=== PATIENT | female | born 1940 | race Caucasian/White ===

== ENCOUNTER 2016-07-15 11:26 | Emergency (ER) | payer MEDICARE ==
[2016-07-15 11:37] VITALS: O2SAT 98
[2016-07-15 12:02] LABS: BASOPHIL % 0.4 % (0.0-0.4); Eosinophil % 2.8 % (0.00-5.0); Granulocytes % 75.7 % (36.0-66.0); Lymphocytes % 11.1 % (24.0-44.0); Mean Cell Volume 102.2 fl (78-100); Mean Corpuscular Hemoglobin 30.7 pg (26-32); Mean Platelet Volume 8.8 fl (6-9.5); Platelet Count 203 K/mm3 (150-450); Red Blood Count 2.73 M/mm3 (4.1-5.4); Red Cell Distribution Width 14.9 % (11.5-14.0); White Blood Count 7.7 K/mm3 (4.0-10.5)
--- NOTE | 2016-07-15 12:05 | ERPHSYRPT ---
- History of Present Illness Time Seen by Provider: 07/15/16 11:28 Source: patient, EMS Patient Subjective Stated Complaint: fall Triage Nursing Assessment: states she was coming back from bathroom and she fell. 'i couldnt lift my right leg' bilat knees swollen. non speicific to pain when asked. c/o mid back pain. per ems report from visiting nurse--pt slid off toilet and landed on her buttocks. witnessed fall per ems report. pt states she fell several weeks ago. no new bruises. pt confused to year and date. oriented to place. Physician History: CC: fall Hx: 76 y/o patient living in apartment alone. EMS was called when she hit her medical alert button. She states trouble moving legs since yesterday. She uses a wheelchair. She went to toilet today. A nurse in the home? told EMS that patient slid from toilet onto buttocks. No head or neck injury. Patient has chronic pain all over. Worse in legs. Complains of some back pain. Timing/Duration: today Severity: mild Allergies/Adverse Reactions: morphine Allergy (Severe, Verified 07/15/16 11:41) "i went to sleep and they almost couldnt' get me to wake up" adhesive Allergy (Mild, Verified 07/15/16 11:41) Blisters Home Medications: Amlodipine Besylate 5 mg [Norvasc 5 mg] 5 mg PO DAILY 01/20/16 [History] Aspirin EC 325 mg [Ecotrin 325 MG] 325 mg PO DAILY 01/20/16 [History] Clopidogrel Bisulfate 75 mg [PLAVIX 75 MG Tablet] 75 mg PO DAILY 01/20/16 [History] Fenofibrate Nanocrystallized [Tricor] 48 mg PO DAILY 01/20/16 [History] HydrALAzine HCL 25 MG TAB [Apresoline 25 MG TABLET] 25 mg PO TID 01/20/16 [History] Isosorbide Mononitrate 60 mg [Imdur 60MG] 60 mg PO DAILY 01/20/16 [History] Lisinopril 40 mg PO DAILY 01/20/16 [History] Nitroglycerin [Nitroglycerin Patch] 0.4 mg TOP DAILY 01/20/16 [History] Omeprazole 20 MG [Prilosec 20 mg] 20 mg PO DAILY 01/20/16 [History] Polyethylene Glycol 3350 17 gm [Miralax Powder 17GM PACKET] 17 gm PO DAILY [History] Potassium Chloride 20 Meq Tab [Potassium Chloride 20 MEQ TABLET] 20 meq PO DAILY 01/20/16 [History] Torsemide 20 mg PO DAILY 01/20/16 [History] Venlafaxine HCl ER 75 mg [Effexor XR 75 MG] 75 mg PO DAILY 01/20/16 [ History] Clonidine HCl Tts-2 Patch [Catapres TTS-2 PATCH] 0.3 mg TOP Q7D 07/15/16 [ History] Hx Tetanus, Diphtheria Vaccination/Date Given: Yes Hx Influenza Vaccination/Date Given: No Hx Pneumococcal Vaccination/Date Given: No Immunizations Up to Date: Yes - Review of Systems Constitutional: No Symptoms Eyes: No Symptoms, No Vision Changes Respiratory: No Dyspnea Cardiac: No Chest Pain Abdominal/Gastrointestinal: No Abdominal Pain, No Nausea, No Vomiting Musculoskeletal: Back Pain, Joint Pain (legs) Skin: No Rash Neurological: No Focal Weakness, No Headache, No Parasthesia All Other Systems: Unable due to dementia - Past Medical History Pertinent Past Medical History: Yes Neurological History: Dementia, Stroke ENT History: No Pertinent History Cardiac History: Angina, Congestive Heart Failure, Hypertension Respiratory History: Asthma, CHF Endocrine Medical History: Diabetes Type II Musculoskeletal History: Arthritis GI Medical History: No Pertinent History History: No Pertinent History Psycho-Social History: Depression Female Reproductive Disorders: Breast Cancer Other Medical History: patient states she was diabetic but is not anymore - Past Surgical History Past Surgical History: Yes Neuro Surgical History: No Pertinent History Cardiac: No Pertinent History Respiratory: No Pertinent History Gastrointestinal: Appendectomy Genitourinary: No Pertinent History Musculoskeletal: Other Female Surgical History: Hysterectomy, Mastectomy Other Surgical History: surgical repair of r shoulder - Social History Smoking Status: Former smoker How long have you smoked: 55 yr Exposure to second hand smoke: No Drug Use: none Patient Lives Alone: No - Female History Hx Now: No - Nursing Vital Signs Nursing Vital Signs: Initial Vital Signs Temperature 97.6 F Temperature Source Oral Pulse Rate 66 Respiratory Rate 18 Blood Pressure [Right Arm] 155/80 Pain Intensity 9 - Physical Exam General Appearance: alert Eye Exam: PERRL/EOMI Ears, Nose, Throat Exam: normal ENT inspection, moist mucous membranes Neck Exam: normal inspection, non-tender, supple, No midline tenderness Respiratory Exam: lungs clear Cardiovascular Exam: regular rate/rhythm Gastrointestinal/Abdomen Exam: soft, No tenderness, No distention Back Exam: vertebral tenderness (lower thoracic) Extremity Exam: other (swollen knees, rom slow but intact) Neurologic Exam: alert, cooperative, No motor deficits Skin Exam: warm, dry, No rash SpO2 Interpretation: normal SpO2: 98 Oxygen Delivery: Room Air - Course Nursing assessment & vital signs reviewed: Yes Ordered Tests: Active Orders 24 hr Category Date Time Status Cath for Specimen-Straight STAT Care 07/15/16 11:41 Active IV Insertion STAT Care 07/15/16 11:41 Active Regular Diet Diet 07/15/16 Dinner Active KNEE (1 OR 2 VIEW) Stat Exams 07/15/16 12:31 Completed KNEE (1 OR 2 VIEW) Stat Exams 07/15/16 12:32 Completed LOWER LEG Stat Exams 07/15/16 11:39 Completed LOWER LEG Stat Exams 07/15/16 11:40 Completed LUMBAR COMPLETE (MIN 4 VIEWS) Stat Exams 07/15/16 11:39 Completed PELVIS (1 OR 2 VIEWS) Stat Exams 07/15/16 11:39 Completed THORACIC SPINE (AP,LAT,SWIMM) Stat Exams 07/15/16 11:39 Completed CBC W DIFF Stat Lab 07/15/16 11:58 Completed CMP Stat Lab 07/15/16 11:58 Completed CULTURE,URINE Stat Lab 07/15/16 11:42 Ordered UA W/ MICROSCOPIC Stat Lab 07/15/16 11:42 Completed Lab/Rad Data: Laboratory Result Diagrams 07/15/16 11:58 07/15/16 11:58 Laboratory Results 07/15/16 07/15/16 07/15/16 Range/Units 11:58 11:58 11:42 WBC 7.7 (4.0-10.5) K/mm3 RBC 2.73 L (4.1-5.4) M/mm3 Hgb 8.4 L (12.0-16.0) gm/dl Hct 27.9 L (35-47) % MCV 102.2 H (78-100) fl MCH 30.7 (26-32) pg MCHC 30.1 L (32-36) g/dl RDW 14.9 H (11.5-14.0) % Plt Count 203 (150-450) K/mm3 MPV 8.8 (6-9.5) fl Gran % 75.7 H (36.0-66.0) % Lymphocytes % 11.1 L (24.0-44.0) % Monocytes % 10.0 (0.0-12.0) % Eosinophils % 2.8 (0.00-5.0) % Basophils % 0.4 (0.0-0.4) % Basophils # 0.03 (0-0.4) Sodium 144 (136-145) mEq/L Potassium 5.1 (3.5-5.1) mEq/L Chloride 110 H (98-107) mEq/L Carbon Dioxide 19.5 L (21-32) mEq/L Anion Gap 19.5 H (5-15) MEQ/L BUN 54 H (9-20) mg/dL Creatinine 3.22 H (0.55-1.30) mg/dl Estimated GFR 15 ML/MIN Glucose 94 (70-110) MG/DL Calcium 9.2 (8.5-10.1) mg/dL Total Bilirubin 0.2 (0.2-1.0) mg/dL AST 27 (15-37) U/L ALT 7 L (12-78) U/L Alkaline Phosphatase 82 (46-116) U/L Serum Total Protein 6.9 (6.4-8.2) gm/dL Albumin 3.4 (3.4-5.0) g/dL Ur Collection Type CATH Urine Color LT.YELLOW (YELLOW) Urine Appearance CLEAR (CLEAR) Urine pH 5.0 (5-6) Ur Specific Willis 1.010 (1.005-1.025) Urine Protein TRACE (Negative) Urine Glucose (UA) NEGATIVE (NEGATIVE) mg/dL Urine Ketones NEGATIVE (NEGATIVE) Urine Nitrite NEGATIVE (NEGATIVE) Urine Bilirubin NEGATIVE (NEGATIVE) Urine Urobilinogen 0.2 (0-1) mg/dL Urine WBC (Auto) NEGATIVE (NEGATIVE) Urine RBC (Auto) NEGATIVE (0-5) Tye/ul Urine Microscopic WBC 0-2 (0-5) /HPF Amorphous Crystals FEW (NEGATIVE) /HPF Urine Bacteria FEW (NEGATIVE) /HPF Specimen Received 07/15/16 1323 - Progress Progress Note: 07/15/16 14:54 No fractrures on xrays. She is unsteady and unable to transfer to commode without a lot of assistance. ALMA Talbot consulted. Nurses spoke with son. Pt has been at [facility] in the recent past. They have agreed to have her back there. Emergency longterm admission paperwork in progress. Spoke to Dr Ross Eason who will be her SNFologist at [facility] as she has hx of renal failure and anemia. Counseled pt/family regarding: lab results, diagnosis, need for follow-up, rad results - Departure Time of Disposition: 14:56 Departure Disposition: Extended Care Facility Clinical Impression: Fall, Chronic pain syndrome, Chronic anemia, Chronic renal failure Condition: Fair Critical Care Time: No Referrals: MONO EASON MD [NON-STAFF PHY W/O PRIVILEGES] - Additional Instructions: Call Dr Eason for further orders.
[2016-07-15 12:32] LABS: ALBUMIN 3.4 g/dL (3.4-5.0); ANION GAP 19.5 MEQ/L (5-15); BILIRUBIN,TOTAL 0.2 mg/dL (0.2-1.0); Carbon Dioxide 19.5 mEq/L (21-32); Potassium 5.1 mEq/L (3.5-5.1); Total Protein 6.9 gm/dL (6.4-8.2)
--- NOTE | 2016-07-15 13:17 | XRAY ---
Indication: Pain. Confusion. Comparison: None 2 views of the left lower leg demonstrates osteopenia, advanced tricompartmental knee degenerative changes, and scattered vascular calcifications. No other bony, articular, or soft tissue abnormalities.
--- NOTE | 2016-07-15 13:19 | XRAY ---
Indication: Pain. Confusion. Comparison: None. AP/lateral right knee demonstrates osteopenia, advanced tricompartmental degenerative changes, suprapatellar effusion, and scattered vascular calcifications. No other bony, articular, or soft tissue abnormalities.
--- NOTE | 2016-07-15 13:19 | XRAY ---
Indication: Pain. Confusion. Comparison: September 22, 2011. 2 views of the right lower leg again demonstrates osteopenia, advanced tricompartmental knee degenerative changes, and scattered vascular calcifications. No new/acute findings.
--- NOTE | 2016-07-15 13:21 | XRAY ---
Indication: Pain. Confusion. Comparison: None. AP/lateral left knee demonstrates osteopenia, advanced tricompartmental degenerative changes, and scattered vascular calcifications. No other bony, articular, or soft tissue abnormalities.
--- NOTE | 2016-07-15 13:23 | XRAY ---
Indication: Pain. Confusion. Comparison: April 20, 2016.. AP pelvis again demonstrates osteopenia, lower lumbar degenerative changes, and heavy scattered vascular calcifications. New right pelvic ovoid metallic density possible foreign body. No other bony, articular, or soft tissue abnormalities.
[2016-07-15 13:24] LABS: Collection Type CATH
[2016-07-15 13:25] LABS: COMPLETE URINE MICROSCOPIC? YES
--- NOTE | 2016-07-15 13:25 | XRAY ---
Indication: Pain. Confusion. Comparison: December 27, 2011. 5 views of the lumbar spine demonstrates stable osteopenia, advanced multilevel degenerative spondylosis, dextrorotoscoliosis centered at the L2-L3 level, and extensive vascular calcifications. No acute fracture, subluxation, or suspicious bony lesions. New right lower quadrant ovoid metallic density possible foreign body.
--- NOTE | 2016-07-15 13:27 | XRAY ---
Indication: Pain. Confusion. Comparison: None. Frontal/lateral thoracic spine demonstrates 12 typical rib bearing thoracic vertebral segments with mild osteopenia, mild multilevel endplate spurring, mild double curvature scoliosis, large subcarinal calcified node, and aortic calcifications. No other bony, articular, or soft tissue abnormalities.
[2016-07-15 13:29] LABS: Bacteria FEW /HPF (NEGATIVE); WBC 0-2 /HPF (0-5)
[2016-07-15 14:45] VITALS: BP 155/80; PULSE 66
[2016-07-15] MEDS ORDERED: NORCO 5/325 MG PO ONE (15:02)
[2016-07-15] MEDS ORDERED: NORCO 5/325 MG ONE (15:03)
== END 2016-07-15 17:00 ==
LOC: ED 11:26
DX: G89.4 Chronic pain syndrome (principal); D64.89 Other specified anemias; N18.9 Chronic kidney disease, unspecified; W18.11XA Fall from or off toilet without subsequent striking against object, initial encounter
CPT/HCPCS: 99285; 81000; 36415; 85025; 80053; 87086; 73560; 73590; 72170; 72110; 72072; A9270; P9612

== ENCOUNTER 2016-08-27 21:27 | Emergency (ER) | payer MEDICARE ==
--- NOTE | 2016-08-27 21:44 | ERPHSYRPT ---
- History of Present Illness Time Seen by Provider: 08/27/16 21:38 Source: patient, family, EMS Exam Limitations: no limitations Patient Subjective Stated Complaint: fall yesterday pain getting worse on left leg but yet her right is also complaint of pain Triage Nursing Assessment: patient confused but fell yesterday, pain got worse today so she thought better come in has mild confusion. pulses equal bilat radius, lung sounds clear, bowel sounds x4 Physician History: pt is reported to have been here about 10 days ago with similar complaint of falling and injuring right LE and has pain there again today and for back now from fall ; pain with ROM right hip and knee; apears to have parkinsons' like tremor and has hx of dementia without change; no signs of trauma on exam ; Method of Injury: fell Occurred: just prior to arrival Quality: constant, sharpness, throbbing Severity of Pain-Max: moderate Severity of Pain-Current: moderate Lower Extremities Pain: hip: right, leg: right, knee: right Modifying Factors: Improves With: immobilization, movement Associated Symptoms: unable to bear weight Allergies/Adverse Reactions: morphine Allergy (Severe, Verified 07/15/16 11:41) "i went to sleep and they almost couldnt' get me to wake up" adhesive Allergy (Mild, Verified 07/15/16 11:41) Blisters Home Medications: Amlodipine Besylate 5 mg [Norvasc 5 mg] 5 mg PO DAILY 01/20/16 [History] Aspirin EC 325 mg [Ecotrin 325 MG] 325 mg PO DAILY 01/20/16 [History] Clopidogrel Bisulfate 75 mg [PLAVIX 75 MG Tablet] 75 mg PO DAILY 01/20/16 [History] Fenofibrate Nanocrystallized [Tricor] 48 mg PO DAILY 01/20/16 [History] HydrALAzine HCL 25 MG TAB [Apresoline 25 MG TABLET] 25 mg PO TID 01/20/16 [History] Isosorbide Mononitrate 60 mg [Imdur 60MG] 60 mg PO DAILY 01/20/16 [History] Lisinopril 40 mg PO DAILY 01/20/16 [History] Nitroglycerin [Nitroglycerin Patch] 0.4 mg TOP DAILY 09/14/16 [History] Omeprazole 20 MG [Prilosec 20 mg] 20 mg PO DAILY 01/20/16 [History] Polyethylene Glycol 3350 17 gm [Miralax Powder 17GM PACKET] 17 gm PO DAILY [History] Potassium Chloride 20 Meq Tab [Potassium Chloride 20 MEQ TABLET] 20 meq PO DAILY 01/20/16 [History] Torsemide 20 mg PO DAILY 01/20/16 [History] Venlafaxine HCl ER 75 mg [Effexor XR 75 MG] 75 mg PO DAILY 01/20/16 [ History] Clonidine HCl Tts-2 Patch [Catapres TTS-2 PATCH] 0.3 mg TOP Q7D 07/15/16 [ History] Hx Tetanus, Diphtheria Vaccination/Date Given: Yes Hx Influenza Vaccination/Date Given: Yes Hx Pneumococcal Vaccination/Date Given: Yes Immunizations Up to Date: Yes - Review of Systems Constitutional: No Fever, No Chills Eyes: No Symptoms Ears, Nose, & Throat: No Symptoms Respiratory: No Cough, No Dyspnea Cardiac: No Chest Pain, No Edema, No Syncope Abdominal/Gastrointestinal: No Abdominal Pain, No Nausea, No Vomiting, No Diarrhea Genitourinary Symptoms: No Dysuria Musculoskeletal: Back Pain, Fall, Joint Pain, No Neck Pain Skin: No Rash Neurological: No Dizziness, No Focal Weakness, No Sensory Changes Psychological: No Symptoms Endocrine: No Symptoms All Other Systems: Reviewed and Negative - Past Medical History Pertinent Past Medical History: Yes Neurological History: Dementia, Stroke ENT History: No Pertinent History Cardiac History: Angina, Congestive Heart Failure, Hypertension Respiratory History: Asthma, CHF Endocrine Medical History: Diabetes Type II Musculoskeletal History: Arthritis GI Medical History: No Pertinent History History: No Pertinent History Psycho-Social History: Depression Female Reproductive Disorders: Breast Cancer Other Medical History: patient states she was diabetic but is not anymore - Past Surgical History Past Surgical History: Yes Neuro Surgical History: No Pertinent History Cardiac: No Pertinent History Respiratory: No Pertinent History Gastrointestinal: Appendectomy Genitourinary: No Pertinent History Musculoskeletal: Other Female Surgical History: Hysterectomy, Mastectomy Other Surgical History: surgical repair of r shoulder - Social History Smoking Status: Former smoker How long have you smoked: 55 yr Exposure to second hand smoke: No Drug Use: none Patient Lives Alone: No - Female History Hx Now: No - Nursing Vital Signs Nursing Vital Signs: Initial Vital Signs Temperature Source Oral Pulse Rate 102 Respiratory Rate 20 Blood Pressure [] 126/78 Pain Intensity 10 - Physical Exam General Appearance: alert Eyes, Ears, Nose, Throat Exam: moist mucous membranes Neck Exam: non-tender, supple Cardiovascular/Respiratory Exam: chest non-tender, normal breath sounds, regular rate/rhythm, no respiratory distress Gastrointestinal/Abdominal Exam: non-tender, guarding Back Exam: normal inspection, No vertebral tenderness Hips Exam: right: bone tenderness, limited range of motion, pain, left: non- tender, normal inspection, normal range of motion, no evidence of injury Legs Exam: right leg: bone tenderness, limited range of motion, pain, left leg: non-tender, normal inspection, normal range of motion, no evidence of injury Knees Exam: right knee: bone tenderness, pain, left knee: non-tender, normal inspection, normal range of motion, no evidence of injury Ankle Exam: bilateral ankle: non-tender, normal inspection, normal range of motion, no evidence of injury Foot Exam: bilateral foot: non-tender, normal inspection, normal range of motion , no evidence of injury DTR - Lower Extremities Exam: knee (R): 2+, knee (L): 2+, ankle (R): 2+, ankle ( L): 2+ Neuro/Tendon Exam: normal sensation, normal motor functions Mental Status Exam: alert, oriented x 3, cooperative Skin Exam: normal color, warm, dry SpO2 Interpretation: normal SpO2: 97 Oxygen Delivery: Room Air - Course Nursing assessment & vital signs reviewed: Yes - Radiology Exams Hip X-ray Interpretation: Reviewed by me, Other (lucency at right hip may be nondisplaced fracture not visible in all views/) T-Spine X-ray Interpretation: Reviewed by me, Other (scoliosis and old lateral wedging) Ordered Tests: Active Orders 24 hr Category Date Time Status EKG-ER Only STAT Care 08/27/16 22:43 Active HIPS AFTAB(2V) INCL PEL IF DONE Stat Exams 08/27/16 21:49 Taken KNEE (1 OR 2 VIEW) Stat Exams 08/27/16 21:49 Taken LOWER LEG Stat Exams 08/27/16 21:51 Taken THORACOLUMBAR SPINE Stat Exams 08/27/16 21:50 Taken CBC W DIFF Stat Lab 08/27/16 22:08 Completed CMP Stat Lab 08/27/16 22:08 Completed Lactic Acid Urgent Lab 08/27/16 22:05 Completed Manual Differential NC Stat Lab 08/27/16 22:08 Completed Potassium (Lab Test) [Potassium] Stat Lab 08/27/16 23:49 Completed UA Stat Lab 08/27/16 21:48 Ordered VENOUS BLOOD GAS Stat Lab 08/27/16 22:05 Completed Medication Summary Discontinued Medications Generic Name Dose Route Start Last Admin Trade Name Freq PRN Reason Stop Dose Admin Hydromorphone HCl 0.5 mg 08/28/16 00:03 08/28/16 00:14 Hydromorphone 1 Mg/Ml Ampule IV 08/28/16 00:04 0.5 mg STAT ONE Administration Hydromorphone HCl Confirm 08/28/16 00:11 Hydromorphone 1 Mg/Ml Ampule Administered 08/28/16 00:12 Dose 1 mg .ROUTE .STK-MED ONE Sodium Bicarbonate 25 meq 08/27/16 22:41 08/27/16 23:05 Sodium Bicarbonate 50 Meq/50 Ml Abboject IV 08/27/16 22:42 25 meq STAT ONE Administration Sodium Bicarbonate Confirm 08/27/16 23:04 Sodium Bicarbonate 50 Meq/50 Ml Abboject Administered 08/27/16 23:05 Dose 50 meq IV .STK-MED ONE Lab/Rad Data: Laboratory Result Diagrams 08/27/16 22:08 08/27/16 23:49 Laboratory Results 08/27/16 08/27/16 08/27/16 Range/Units 23:49 22:08 22:08 WBC 12.3 H (4.0-10.5) K/mm3 RBC 3.17 L (4.1-5.4) M/mm3 Hgb 9.5 L (12.0-16.0) gm/dl Hct 30.9 L (35-47) % MCV 97.5 (78-100) fl MCH 29.9 (26-32) pg MCHC 30.7 L (32-36) g/dl RDW 15.9 H (11.5-14.0) % Plt Count 305 (150-450) K/mm3 MPV 9.6 H (6-9.5) fl Segmented Neutrophils 86 H (36.0-66.0) % Band Neutrophils 1 (0.0-2.0) % Lymphocytes (Manual) 4 L (24-44) % Monocytes (Manual) 8 (0.0-12.0) % Basophils (Manual) 1 (0.0-1.0) % Differential Comment ABNORMAL Platelet Estimate NORMAL (NORMAL) Polychromasia 1+ Hypochromasia 1+ VBG pH (7.32-7.42) VBG pCO2 at Pat Temp (42-55) mm/Hg VBG pO2 at Pat Temp (25-40) mm/Hg VBG HCO3 (22-28) meq/L VBG O2 Sat (Belkys) (95-100) VBG Base Excess (-2.0-2.0) VBG Hemoglobin VBG Carboxyhemoglobin (0.0-6.9) % T HGB POC Potassium (3.5-5.1) Sodium 135 L (136-145) mEq/L Potassium 7.6 H* 7.8 H* (3.5-5.1) mEq/L Chloride 104 (98-107) mEq/L Carbon Dioxide 10.6 L* (21-32) mEq/L Anion Gap 28.6 H (5-15) MEQ/L BUN 115 H (9-20) mg/dL Creatinine 7.38 H (0.55-1.30) mg/dl Estimated GFR 6 ML/MIN Glucose 68 L (70-110) MG/DL Lactic Acid (0.4-2.0) Calcium 9.5 (8.5-10.1) mg/dL Total Bilirubin 0.4 (0.2-1.0) mg/dL AST 33 (15-37) U/L ALT 10 L (12-78) U/L Alkaline Phosphatase 112 (46-116) U/L Serum Total Protein 7.2 (6.4-8.2) gm/dL Albumin 2.8 L (3.4-5.0) g/dL 08/27/16 08/27/16 Range/Units 22:05 22:05 WBC (4.0-10.5) K/mm3 RBC (4.1-5.4) M/mm3 Hgb (12.0-16.0) gm/dl Hct (35-47) % MCV (78-100) fl MCH (26-32) pg MCHC (32-36) g/dl RDW (11.5-14.0) % Plt Count (150-450) K/mm3 MPV (6-9.5) fl Segmented Neutrophils (36.0-66.0) % Band Neutrophils (0.0-2.0) % Lymphocytes (Manual) (24-44) % Monocytes (Manual) (0.0-12.0) % Basophils (Manual) (0.0-1.0) % Differential Comment Platelet Estimate (NORMAL) Polychromasia Hypochromasia VBG pH 7.12 L* (7.32-7.42) VBG pCO2 at Pat Temp 26 L (42-55) mm/Hg VBG pO2 at Pat Temp 25 (25-40) mm/Hg VBG HCO3 8.5 L* (22-28) meq/L VBG O2 Sat (Belkys) 48.8 L (95-100) VBG Base Excess -19.3 L (-2.0-2.0) VBG Hemoglobin 10.1 VBG Carboxyhemoglobin 1.9 (0.0-6.9) % T HGB POC Potassium 7.5 H* (3.5-5.1) Sodium (136-145) mEq/L Potassium (3.5-5.1) mEq/L Chloride (98-107) mEq/L Carbon Dioxide (21-32) mEq/L Anion Gap (5-15) MEQ/L BUN (9-20) mg/dL Creatinine (0.55-1.30) mg/dl Estimated GFR ML/MIN Glucose (70-110) MG/DL Lactic Acid 0.8 (0.4-2.0) Calcium (8.5-10.1) mg/dL Total Bilirubin (0.2-1.0) mg/dL AST (15-37) U/L ALT (12-78) U/L Alkaline Phosphatase (46-116) U/L Serum Total Protein (6.4-8.2) gm/dL Albumin (3.4-5.0) g/dL - Progress Progress: improved, re-examined Progress Note: 08/28/16 00:47 pt was discussed with Vin Anguiano at [facility] for transfer to that facility for dialysis and tx hyperkalemia and possible right hip non displaced fx; and she accepts; imitial tx begun with bicarb Discussed with Dr.: Other (vin anguiano hospitalist) Will see patient in: hospital (full admit) Counseled pt/family regarding: lab results, diagnosis, need for follow-up, rad results - Departure Time of Disposition: 00:49 Departure Disposition: Transfer Clinical Impression: Chronic renal failure, Dementia, Fall, Chronic anemia, nondisplaced right hip fracture, Hyperkalemia, diminished renal excretion Condition: Critical Critical Care Time: Yes Critical Care Time(excluding separately billable procedures): 30-74 minutes ( treatment of critical hyperkalemia and getting IV access to treat this - monitoring EKG )
[2016-08-27 22:13] LABS: Mean Cell Volume 97.5 fl (78-100); Mean Platelet Volume 9.6 fl (6-9.5); Platelet Count 305 K/mm3 (150-450); Red Blood Count 3.17 M/mm3 (4.1-5.4); Red Cell Distribution Width 15.9 % (11.5-14.0); White Blood Count 12.3 K/mm3 (4.0-10.5)
[2016-08-27 22:17] LABS: Mean Corpuscular Hemoglobin 29.9 pg (26-32)
[2016-08-27 22:20] LABS: VBG BASE EXCESS -19.3 (-2.0-2.0); VBG CARBOXYHEMOGLOBIN 1.9 % T HGB (0.0-6.9); VBG HCO3- 8.5 meq/L (22-28); VBG HEMOGLOBIN 10.1; VBG O2 SATURATION 48.8 (95-100)
[2016-08-27 22:21] LABS: VBG POTASSIUM 7.5 (3.5-5.1); VBG pH 7.12 (7.32-7.42)
[2016-08-27 22:31] LABS: ALBUMIN 2.8 g/dL (3.4-5.0); ANION GAP 28.6 MEQ/L (5-15); BILIRUBIN,TOTAL 0.4 mg/dL (0.2-1.0); Total Protein 7.2 gm/dL (6.4-8.2)
[2016-08-27 22:36] LABS: Carbon Dioxide 10.6 mEq/L (21-32); Potassium 7.8 mEq/L (3.5-5.1)
[2016-08-27] MEDS ORDERED: SODIUM BICARBONATE 50 MEQ/50 ML ABBOJECT IV ONE ×2 (22:41→23:04)
[2016-08-28] MEDS ORDERED: Hydromorphone 1 mg/ml Ampule IV ONE (00:03)
[2016-08-28] MEDS ORDERED: Hydromorphone 1 mg/ml Ampule ONE (00:11)
[2016-08-28 00:23] LABS: BAND 1 % (0.0-2.0); Basophil 1 % (0.0-1.0); Hypochromia 1+; Platelet Estimate NORMAL (NORMAL); Polychromasia 1+; Total Cells Counted 100
[2016-08-28] MEDS ORDERED: Sodium Chloride 0.9% 1000 ML 1,000 ML ONE (01:20)
[2016-08-28] MEDS ORDERED: Sodium Chloride 0.9% 1000 ML 1,000 ML IV SCH (01:30)
[2016-08-28 01:43] VITALS: BP 128/70; PULSE 90; O2SAT 98
[2016-08-28 02:05] LABS: Collection Type CLEAN CATCH
[2016-08-28 02:06] LABS: Bacteria MODERATE /HPF (NEGATIVE); COMPLETE URINE MICROSCOPIC? YES; Epithelial Cells MODERATE /HPF (FEW); Yeast FEW /HPF (NEGATIVE)
--- NOTE | 2016-08-28 08:36 | XRAY ---
Indication: Pain following fall. Comparison: July 15, 2016. AP/lateral spine obtained centered at the thoracolumbar junction again demonstrates osteopenia, double curvature scoliosis, moderate/advanced multilevel degenerative spondylosis, heavy vascular calcifications, and chunky subcarinal calcified nodes. No new/acute findings. Impression: Stable nonacute exam again with chronic features.
--- NOTE | 2016-08-28 08:44 | XRAY ---
Indication: Pain following fall. Comparison: None. There is a pelvis radiograph dated July 15, 2016. AP pelvis and 2 views of the left and right hip demonstrates osteopenia, lower lumbar degenerative changes, heavy scattered vascular calcifications, and right pelvic round metallic density similar in appearance to the prior pelvic radiograph. New nondisplaced fracture involving the right femur neck extending to the greater trochanter. No other bony, articular, or soft tissue abnormalities. Comment: Fracture not reported on preliminary interpretation by the ER clinician. I gave telephone report to Dr. Valiente at 0838 hrs. on August 28, 2016.
--- NOTE | 2016-08-28 08:46 | XRAY ---
Indication: Pain following fall. Comparison: July 15, 2016. 2 views of the right lower leg again demonstrates osteopenia, advanced tricompartmental knee degenerative changes and scattered vascular calcifications. No new/acute findings.
--- NOTE | 2016-08-28 08:48 | XRAY ---
Indication: Pain following fall. Comparison: July 15, 2016. AP/lateral right knee again demonstrates osteopenia, advanced tricompartmental degenerative changes, suprapatellar effusion, and scattered vascular calcifications unchanged. No new/acute bony, articular, or soft tissue abnormalities.
== END 2016-08-28 01:43 | disposition short-term general hospital (02) ==
LOC: ED 21:27
DX: N18.9 Chronic kidney disease, unspecified (principal); F03.90 Unspecified dementia, unspecified severity, without behavioral disturbance, psychotic disturbance, mood disturbance, and anxiety; D64.9 Anemia, unspecified; S72.001A Fracture of unspecified part of neck of right femur, initial encounter for closed fracture; E87.5 Hyperkalemia; W19.XXXA Unspecified fall, initial encounter; E11.9 Type 2 diabetes mellitus without complications; I10 Essential (primary) hypertension; I50.9 Heart failure, unspecified
CPT/HCPCS: 36415; 51702; 72080; 73521; 73560; 73590; 80053; 81000; 82805; 83605; 84132; 85025; 93005; 96360; 96374; 96375; 99285; J1170